=== PATIENT | male | born 1955 | race Caucasian/White ===

== ENCOUNTER 2019-05-30 07:22 | Day surgery (SDC) | payer OTHER ==
[~2019-05-30 07:22] MED LIST: CEFAZOLIN 2 GM/50 ML (PMX) 50 ML IVPB
[2019-05-30] MEDS ORDERED: FENTAnyl 50 MCG/ML VIAL ×2 (11:39→12:33)
[2019-05-30] MEDS ORDERED: MIDAZOLAM 1 MG/ML 2 ML INJ (11:39)
[2019-05-30] MEDS ORDERED: PROPOFOL 20 ML (12:33)
[2019-05-30] MEDS ORDERED: CEFAZOLIN 1 GM INJ (12:33)
[2019-05-30] MEDS ORDERED: LIDOCAINE 2% (SDV) 5 ML INJ (12:33)
[2019-05-30] MEDS ORDERED: ONDANSETRON 4 MG INJ (12:37)
[2019-05-30] MEDS ORDERED: DEXAMETHASONE 4 MG/ML 5 ML INJ (12:37)
[2019-05-30] MEDS: BUPIVACAINE 0.25% (MPF) 30 ML INJ (12:49)
[2019-05-30] MEDS ORDERED: HYDROmorphONE 1 MG/5 ML IV SYRINGE IV ×3 (13:30)
[2019-05-30] MEDS ORDERED: hydrALAzine 20 MG INJ IV (13:30)
[2019-05-30] MEDS ORDERED: OXYCODONE/ACETAMINOPHEN (5/325) TAB PO (13:30)
[2019-05-30] MEDS ORDERED: LABETALOL HCL 20MG INJ IV (13:30)
[2019-05-30] MEDS ORDERED: ONDANSETRON 4 MG INJ IV (13:30)
[2019-05-30] MEDS ORDERED: MEPERIDINE 25 MG INJ IV (13:30)
[2019-05-30] MEDS: OXYCODONE/ACETAMINOPHEN (5/325) TAB PO (15:19)
== END 2019-05-30 16:08 | disposition home or self-care (01) ==
LOC: SDS 07:22
DX: N43.3 Hydrocele, unspecified (principal); N43.41 Spermatocele of epididymis, single; E78.5 Hyperlipidemia, unspecified
CPT/HCPCS: 54840; 88302; 88304